=== PATIENT | female | born 1955 | race Caucasian/White ===

== ENCOUNTER 2020-02-08 11:03 | Emergency (ER) | payer OTHER, SELFPAY ==
[2020-02-08 11:04] VITALS: BP 158/96; PULSE 102; RESP 20; TEMP 36.3; BMI 24.2
--- NOTE | 2020-02-08 11:59 | CT_ITS ---
STUDY: CT ABDOMEN AND PELVIS WITH CONTRAST REASON FOR EXAM: Female, 64 years old. Abdominal pain, nausea, fever RADIATION DOSAGE (If Supplied By Facility): CTDIvol = ( 10.27 ) mGy, DLP = ( 483.46 ) mGycm TECHNIQUE: Transaxial images were obtained from the dome of the diaphragm to the symphysis pubis without oral contrast. IV 100mL Isovue-300 was administered. Sagittal and coronal images were reconstructed. Individualized dose optimization techniques were used for this CT. COMPARISON: None. FINDINGS: The visualized lung bases are unremarkable. The visualized portions of the heart are within normal limits. Normal liver. Normal gallbladder and extrahepatic biliary system. Normal spleen. Normal pancreas. Normal bilateral adrenal glands. Normal right kidney. Normal left kidney. Normal visualized stomach. Normal small intestine. Retained stool noted throughout the colon. There are scattered diverticula without CT evidence of acute diverticulosis. There is however an abrupt caliber change at the junction of the distal sigmoid colon and rectum with submucosal thickening and perirectal inflammatory stranding. An underlying mass lesion needs to be excluded. This is best seen on axial image 78. There is non-visualization of the appendix. Normal abdominal aorta. Normal inferior vena cava. Normal retroperitoneum. Normal urinary bladder. Uterus is still present, the endometrium cannot be accurately evaluated with CT. No suspicious cystic mass or free fluid. Normal abdominal wall. There are degenerative changes of the visualized lumbar spine, and pelvis. CT/Abdomen/Pelvis W IV Cont ONLY IMPRESSION: There is abrupt caliber change within the colon at the junction of the distal sigmoid colon and rectum. This is best seen on axial image 78. Additionally, there is some mucosal thickening and perirectal inflammatory stranding. Underlying mass lesion needs to be excluded. Inflammation however could also be due to diverticulitis. Recommend further evaluation with sigmoidoscopy or colonoscopy once the acute inflammation has resolved. No perforation or abscess No suspicious solid organ abnormality Uterus is still present, the endometrium cannot be accurately evaluated with CT. Electronically Signed: Yefri Murray MD at 13:29 EDT , Service support ,
--- NOTE | 2020-02-08 12:00 | ED.VIS.GEN ---
History of Present Illness Chief Complaint: Abd Pain Informant: Patient Narrative: 64-year-old female presents for the evaluation of lower abdominal pain. Symptoms have been present since last . She went to an urgent care and felt clinically that this was diverticulitis and was placed on monotherapy of Flagyl. She notes a penicillin allergy. She notes that she was constipated over the weekend but did have a small bowel movement last night. Subjective fever. She denies any urinary symptoms. She states that she has never had a diverticular abscess or perforation. Past Medical History - Allergies and Home Meds Allergies/Adverse Reactions: Allergies Penicillins Allergy (Severe, Verified 09/09/17 08:23) Rash, Dirrhea Primary Care Physician: Celena Joseph MD [STAFF PHYSICIAN] - (Call to arrange follow-up for colonoscopy as discussed or call provider of your choice) Care Physician,No Primary [Primary Care Provider] - Past Medical History: None - Diverticulitis Surgical History: hysterectomy Smoking Status: Former smoker Drugs: None Review of Systems General: Reports: Fever. Denies: Chills, Sweats Eyes: Denies: Visual changes - bilaterally, Diplopia ENT: Denies: Rhinorrhea, Sore throat Cardiovascular: Denies: Chest pain, Palpitations Respiratory: Denies: Dyspnea, Cough, Dyspnea on exertion Gastrointestinal: Reports: Abdominal pain, Constipation. Denies: Nausea, Vomiting, Diarrhea, Melena, Hematochezia Genitourinary: Denies: Dysuria, Hematuria, Frequency Musculoskeletal: Denies: Back pain, Extremity Pain Skin: Denies: Rash, Wounds Neurological: Denies: Headache, Weakness, Numbness Physical Exam Vital Signs/Narrative: Vital Signs Temp Pulse Resp BP 02/08/20 11:04 97.4 F L 102 H 20 H 158/96 H Inital Vital Signs reviewed: Yes General: Well nourished, Well developed, No Acute Distress Head: Normocephalic, Atraumatic Eyes: Perrl, EOMI ENT: Moist mucous membranes, No rhinorrhea Neck: Supple, Nontender Cardiovascular: Regular rate, No murmurs, Tachycardia Respiratory: No distress, CTA bilaterally, Chest nontender Abdomen: Soft, Nondistended, Normal bowel sounds, Tender, Guarding. Negative for: Rebound tenderness Back: Nontender, Normal Inspection Extremities: Nontender, No edema Skin: Normal color, No rash Neurological: Alert, Oriented x3, Cranial nerves II-XII grossly intact, Normal Strength, Normal Sensation Psychological: Normal affect, Normal Mood Diagnostic/Tx/Re-eval Clinical Impression(s) from Imaging Studies Abdomen/Pelvis CT 02/08/20 11:59 IMPRESSION: There is abrupt caliber change within the colon at the junction of the distal sigmoid colon and rectum. This is best seen on axial image 78. Additionally, there is some mucosal thickening and perirectal inflammatory stranding. Underlying mass lesion needs to be excluded. Inflammation however could also be due to diverticulitis. Recommend further evaluation with sigmoidoscopy or colonoscopy once the acute inflammation has resolved. No perforation or abscess No suspicious solid organ abnormality Uterus is still present, the endometrium cannot be accurately evaluated with CT. Electronically Signed: Yefri Murray MD at 13:29 EDT , Service support , Laboratory Last Values WBC 7.5 K/mm3 (4.4-11.0) 02/08/20 11:30 RBC 4.35 M/mm3 (4.2-5.4) 02/08/20 11:30 Hgb 13.1 g/dL (12.0-15.0) 02/08/20 11:30 Hct 39.1 % (37-47) 02/08/20 11:30 MCV 89.9 fL (81-99) 02/08/20 11:30 MCH 30.1 pg (27.0-32.0) 02/08/20 11:30 MCHC 33.5 g/dL (32-36) 02/08/20 11:30 RDW Std Deviation 38.4 fl (35.1-43.9) 02/08/20 11:30 RDW Coeff of Doris 11.7 % (11.6-14.6) 02/08/20 11:30 Plt Count 381 K/mm3 (150-450) 02/08/20 11:30 MPV 10.4 fl (6.2-12.0) 02/08/20 11:30 Immature Gran % (Auto) 0.400 % (0.0-0.9) 02/08/20 11:30 Neut % (Auto) 76.8 % (47-70) H 02/08/20 11:30 Lymph % (Auto) 9.6 % (19-41) L 02/08/20 11:30 [place] % (Auto) 12.4 % (0-10) H 02/08/20 11:30 Eos % (Auto) 0.4 % (0-5) 02/08/20 11:30 Baso % (Auto) 0.4 % (0-1) 02/08/20 11:30 Absolute Neuts (auto) 5.7 X10^3/uL (2.0-7.7) 02/08/20 11:30 Absolute Lymphs (auto) 0.72 X10^3/uL (0.83-4.51) L 02/08/20 11:30 Nucleated RBC % 0 % (0-5) 02/08/20 11:30 Sodium 133 mmol/L (136-145) L 02/08/20 11:30 Potassium 3.6 mmol/L (3.5-5.1) 02/08/20 11:30 Chloride 101 mmol/L (98-107) 02/08/20 11:30 Carbon Dioxide 25.0 mmol/L (21.0-32.0) 02/08/20 11:30 Anion Gap 7 (5-15) 02/08/20 11:30 BUN 8 mg/dL (7-18) 02/08/20 11:30 Creatinine 0.85 mg/dL (0.55-1.02) 02/08/20 11:30 Estim Creat Clear Calc 64.24 ml/min 02/08/20 11:30 Est GFR (MDRD) Af Amer 87 mL/min (>60) 02/08/20 11:30 Est GFR (MDRD) Non-Af 72 mL/min (>60) 02/08/20 11:30 BUN/Creatinine Ratio 9.4 RATIO (10-20) L 02/08/20 11:30 Glucose 91 mg/dL (74-106) 02/08/20 11:30 Calcium 9.1 mg/dL (8.5-10.1) 02/08/20 11:30 - Medical Decision Making Please see radiologist read for details on the CT. I think the patient is not fully treated for her diverticulitis. I think she needs to continue the Flagyl and she needs to have ciprofloxacin added to it. When she is better or if she is not improving she needs to undergo visualization of the concerning area on the CT. this was discussed with the patient at the bedside. ED Disposition - Plan for ED Patient: Disposition: Home or Assisted Living Diagnosis: Diverticulitis Instructions: ED Diverticulitis Prescriptions: Ciprofloxacin [Cipro] 500 mg PO BID #10 tab Prescription Printed metroNIDAZOLE [Flagyl] 500 mg PO Q8H #21 tab Prescription Printed Hydrocodone Bitart/Apap 5-325 [[place] 5MG-325MG] 1 tab PO Q6H PRN PRN 3 Days #12 tab PRN Reason: Pain Prescription Printed Ondansetron [Zofran Odt] 4 mg PO Q6H PRN PRN #20 tab PRN Reason: Nausea Prescription Printed Referrals: Care Physician,No Primary [Primary Care Provider] - Celena Joseph MD [STAFF PHYSICIAN] - (Call to arrange follow-up for colonoscopy as discussed or call provider of your choice)
[2020-02-08] MEDS: 0.9% Normal Saline 1,000 ML 1000 ML IV (12:18)
[2020-02-08] MEDS: Ondansetron 4 MG/2 ML Vial IV (12:18)
[2020-02-08] MEDS: Morphine 4 MG/ML Syringe IV (12:18)
[2020-02-08 12:35] LABS: Absolute Lymphocyte Count 0.72 X10^3/uL (0.83-4.51); Absolute Neutrophil Count 5.7 X10^3/uL (2.0-7.7); Basophil# 0.03 X10^3/uL; Basophil% 0.4 % (0-1); Eosinophil# 0.03 X10^3/uL; Eosinophils% 0.4 % (0-5); Hematocrit 39.1 % (37-47); Hemoglobin 13.1 g/dL (12.0-15.0); Lymphocyte # 0.72 X10^3/ul (4.0); Lymphocyte % 9.6 % (19-41); Mean Corp Hgb Conc 33.5 g/dL (32-36); Mean Corpuscular Hgb 30.1 pg (27.0-32.0); Mean Corpuscular Volume 89.9 fL (81-99); Mean Platelet Vol. 10.4 fl (6.2-12.0); Monocyte# 0.93 X10^3/uL; Monocyte% 12.4 % (0-10); NRBC Flagged by Analyzer 0 % (0-5); Neutrophil # 5.73 X10^3/uL (2.7-7.7); Neutrophil % 76.8 % (47-70); Platelet Count 381 K/mm3 (150-450); RBC Distribution Width CV 11.7 % (11.6-14.6); RBC Distribution Width SD 38.4 fl (35.1-43.9); Red Blood Count 4.35 M/mm3 (4.2-5.4); White Blood Count 7.5 K/mm3 (4.4-11.0)
[2020-02-08 12:44] LABS: Anion Gap 7 (5-15); BUN 8 mg/dL (7-18); BUN/Creat Ratio 9.4 RATIO (10-20); Calcium,Total 9.1 mg/dL (8.5-10.1); Chloride 101 mmol/L (98-107); Creatinine, Serum 0.85 mg/dL (0.55-1.02); EST Glomerular Filtration Rate 72 mL/min (>60); Est Glom Filt Rate - Afr Amer 87 mL/min (>60); Estimated Creatinine Clearance 64.24 ml/min; Glucose 91 mg/dL (74-106); Potassium 3.6 mmol/L (3.5-5.1); Sodium Level 133 mmol/L (136-145)
[2020-02-08 13:29] VITALS: RESP 18
== END 2020-02-08 14:30 | disposition home or self-care (01) ==
PROVIDERS: Emergency Provider Emergency Medicine
DX: K57.92 Diverticulitis of intestine, part unspecified, without perforation or abscess without bleeding (principal); Z87.891 Personal history of nicotine dependence
CPT/HCPCS: 74177; 80048; 85025; 96361; 96374; 96375; 99282; J7030; Q9967; A4216; J2405